=== PATIENT | female | born 1980 | race Caucasian/White ===

== ENCOUNTER 2018-04-28 23:48 | Emergency (ER) | payer BC ==
[~2018-04-28] VITALS: Ht 172.7 cm; Wt 70.8 kg
[~2018-04-28 23:48] MED LIST: AZITHROMYCIN D250 MG PO; MACROBID100 M1 PO; MIRALAX POWDER17 G1 PO
[2018-04-28 23:49] VITALS: BP 131/71
[2018-04-29] MEDS ORDERED: Motrin,Rufen800 MG PO (00:11)
[2018-04-29] MEDS ORDERED: PENICILLIN-VK500 MG PO (00:11)
== END 2018-04-29 00:52 | disposition home or self-care (01) ==
LOC: ED 23:48
DX: K08.89 Other specified disorders of teeth and supporting structures (principal)

== ENCOUNTER 2024-06-24 15:54 | Inpatient (IN) | payer OTHER ==
[~2024-06-24] VITALS: Ht 172.7 cm; Wt 74.8 kg
[~2024-06-24 15:54] MED LIST changes: +AMOXICILLIN500 M2 PO; +CIPRO500 MG PO; +IBUPROFEN600 MG PO; +Motrin,Rufen800 MG PO; +PENICILLIN-VK500 MG PO
[2024-06-24 16:33] VITALS: BP 116/64
[2024-06-24] MEDS ORDERED: Ondansetron Hydrochloride 4 MG/2 ML VIAL IV ONE (16:50)
[2024-06-24] MEDS ORDERED: SODIUM CHLORIDE 0.9% 1,000 ML IV SCH (16:50)
[2024-06-24 17:04] LABS: BASO % 0.5 % (0.0-1.0); EOS % 0.5 % (1.0-4.0); HEMATOCRIT 33.5 % (37.0-47.0); MEAN CELL VOLUME 84.2 fl (81.0-99.0); MEAN CORPUSCULAR HGB 28.6 pg (27.0-31.0); MEAN PLATELET VOLUME 11.3 fl (9.6-12.3); MONO # 0.6 10*3/uL (0.1-1.0); MONO % 7.4 % (3.0-9.0); NEUT # 6.4 10*3/uL (2.3-7.9); NEUT % 73.5 % (47.0-73.0); PLATELET COUNT AUTOMATED 372 10*3/uL (130-400); RED BLOOD COUNT 3.98 10*6/uL (4.10-5.10); RED CELL DISTRI WIDTH 11.3 % (0-14.5); WHITE BLOOD COUNT 8.6 10*3/uL (4.8-10.8)
[2024-06-24 17:34] LABS: POTASSIUM 3.7 mmol/L (3.4-5.1); TOTAL PROTEIN 7.4 gm/dL (6.0-8.0)
[2024-06-24 17:53] LABS: BILIRUBIN Negative (Negative); BLOOD Trace-Lysed (Negative); CLARITY Cloudy (Clear); COLOR Yellow (Yellow); GLUCOSE Negative (Negative); KETONE Negative (Negative); LEUKO ESTERASE 2+ (Negative); NITRITE Negative (Negative); SPECIFIC GRAVITY 1.015 (1.001-1.030); UROBILINOGEN 0.2 E.U./dl (0.0-1.0)
[2024-06-24 18:07] LABS: BACTERIA 1+; EPITHELIAL CELLS 16-20; WBC 51-100 wbc/hpf (0-5)
[2024-06-24] MEDS ORDERED: Ceftriaxone Sodium 1 GM/10 ML SYR IV ONE (18:10)
[2024-06-24 19:59] VITALS: BP 118/68
[2024-06-24] MEDS ORDERED: Vancomycin Hydrochloride 250 ML IV ONE (20:40)
[2024-06-24 23:30] VITALS: BP 122/87
[2024-06-25 03:45] VITALS: BP 122/87
[2024-06-25] MEDS ORDERED: Piperacillin Sodium/Tazobact 50 ML IV SCH (12:00)
[2024-06-25 14:27] VITALS: BP 109/56
[2024-06-25 21:24] VITALS: BP 118/59
[2024-06-25] MEDS ORDERED: ACETAMINOPHEN 325 MG TAB PO PRN (21:25)
[2024-06-25 21:39] VITALS: BP 123/65
[2024-06-26] VITALS: BP 120/57
[2024-06-26 06:30] LABS: BASO % 0.5 % (0.0-1.0); EOS # 0.1 10*3/uL (0.0-0.4); EOS % 1.2 % (1.0-4.0); HEMATOCRIT 30.4 % (37.0-47.0); MEAN CELL VOLUME 85.4 fl (81.0-99.0); MEAN CORPUSCULAR HGB 28.4 pg (27.0-31.0); MEAN CORPUSCULAR HGB CONC 33.2 g/dl (33.0-37.0); MEAN PLATELET VOLUME 11.1 fl (9.6-12.3); MONO # 0.5 10*3/uL (0.1-1.0); MONO % 7.6 % (3.0-9.0); NEUT # 4.5 10*3/uL (2.3-7.9); NEUT % 69.8 % (47.0-73.0); PLATELET COUNT AUTOMATED 269 10*3/uL (130-400); RED BLOOD COUNT 3.56 10*6/uL (4.10-5.10); RED CELL DISTRI WIDTH 11.5 % (0-14.5); WHITE BLOOD COUNT 6.5 10*3/uL (4.8-10.8)
[2024-06-26 06:46] LABS: CHLORIDE 108 mmol/L (98-107); POTASSIUM 3.5 mmol/L (3.4-5.1)
[2024-06-26 07:08] LABS: BUN 19 mg/dl (9-23)
[2024-06-26] MEDS ORDERED: ZYVOX600 MG PO (09:01)
== END 2024-06-26 10:39 | disposition home or self-care (01) | DRG 872 ==
LOC: ED 15:54 → EDHOLD 20:38 → 4E 06-25 19:26
PROVIDERS: Emergency Medicine; Nurse Practitioner Family; ADMIT Internal Medicine; ATTEND Internal Medicine
DX: A41.9 Sepsis, unspecified organism (principal); N17.9 Acute kidney failure, unspecified; N39.0 Urinary tract infection, site not specified; Z16.11 Resistance to penicillins; Z79.899 Other long term (current) drug therapy; B96.89 Other specified bacterial agents as the cause of diseases classified elsewhere